=== PATIENT | male | born 1980 ===

== ENCOUNTER 2020-10-30 14:31 | Outpatient (REF) | payer MEDICARE, MEDICAID, SELFPAY | END 2020-10-30 14:32 | disposition home or self-care (01) | LOC: HO.LAB 14:31 | PROVIDERS: Visit Provider Internal Medicine | DX: Z20.828 Contact with and (suspected) exposure to other viral communicable diseases (principal) | CPT/HCPCS: C9803; U0003 ==

== ENCOUNTER 2021-12-30 10:12 | Outpatient (REF) | payer MEDICARE, MEDICAID, SELFPAY ==
--- NOTE | ~2021-12-30 | XR_ITS ---
EXAMINATION: XR LUMBOSACRAL SPINE CLINICAL INFORMATION: Dorsalgia COMPARISON: 05/27/2019 TECHNIQUE: Three views of the lumbosacral spine. FINDINGS: No acute fracture or subluxation. Vertebral body height and alignment maintained of the lumbar spine. Mild height loss at the T12 vertebral body is similar to previous CT. Small endplate osteophytes throughout the lumbar spine with mild facet arthropathy. The sacroiliac joints are symmetric. The visualized sacrum is intact. Normal bowel gas pattern. XR/XR lumbar spine 2-3V IMPRESSION: Mild degenerative changes throughout the lumbar spine.
== END 2021-12-30 10:13 | disposition home or self-care (01) ==
LOC: HO.XRAY 10:12
PROVIDERS: PCP Internal Medicine; Visit Provider Internal Medicine
DX: M54.9 Dorsalgia, unspecified (principal)
CPT/HCPCS: 72100

== ENCOUNTER 2022-01-13 10:45 | Outpatient (RCR) | payer MEDICARE, MEDICAID, SELFPAY ==
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
--- NOTE | 2022-01-31 09:49 | MHC.PT.DC ---
[facility] [place] Office [place] Office [address] [place] [address] [phone] F: [phone] F: [phone] F: [phone] F: [phone] Physical Therapy Discharge Report Diagnosis: LBP unspecified Date of Surgery: Date of Evaluation: 01/13/22 Date of Discharge: 01/31/22 Treatments to Date: 1 Cancellations to Date: No Shows to Date: Discharge Status: Patient Elected to Stop Discharge Summary: Pt called to report he was feeling better and wished to not continue with therapy after his initial evaluation. Electronically signed by: Amanuel Dickson PT. Please sign and return to therapist. Thank you for your referral.
== END 2022-01-31 09:48 | disposition home or self-care (01) ==
LOC: HO.PTCHIC 10:45
PROVIDERS: PCP Internal Medicine; Visit Provider Internal Medicine
DX: M54.50 Low back pain, unspecified (principal)
CPT/HCPCS: 97110; 97161

== ENCOUNTER 2023-05-11 14:29 | Inpatient (IN) | payer MEDICARE, MEDICAID, SELFPAY ==
--- NOTE | 2023-05-11 | ECG_ITS ---
Test Reason : psych meds/qt check Blood Pressure : / mmHG Vent. Rate : 089 BPM Atrial Rate : 089 BPM P-R Int : 134 ms QRS Dur : 094 ms QT Int : 378 ms P-R-T Axes : 028 -41 038 degrees QTc Int : 459 ms Normal sinus rhythm Left axis deviation Nonspecific ST and T wave abnormality Abnormal ECG When compared with ECG of 06-APR-2013 21:06, T wave amplitude has decreased in Anterior leads Referred By: Maldonado Griffin Electronically Signed By:DAVIS MCGEE MD
[2023-05-11 14:42] VITALS: BP 161/92; PULSE 100; RESP 18; TEMP 36.8; O2SAT 96; BMI 36.3
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
[2023-05-11 15:22] LABS: MANUAL DIFF FLAG NO
--- NOTE | 2023-05-11 15:24 | PHA.MEDREC ---
Pharmacy Consult ? Medication Reconciliation Pharmacy has completed the medication reconciliation. Spoke to patient to confirm meds. Patient reports their memory making it hard to remember their medications. Patient states that they take all confirmed medications, however patient hasn't filled their medications since February 2023 at the most recent. When asked about this gap of time, patient remains adamant that they take their medications every day and that all confirmed meds are what they currently take.
[2023-05-11 15:29] LABS: Amphetamine Screen Urine Not Detected (Not Detect); Barbiturates, Urine Not Detected (Not Detect); Benzodiazepines Screen Urine Not Detected (Not Detect); Cannabinoid Screen Urine POSITIVE (Not Detect); Cocaine Screen Urine Not Detected (Not Detect); Fentanyl, urine Not Detected (Not Detect); Opiate Screen Urine Not Detected (Not Detect); Phencyclidine Screen Urine Not Detected (Not Detect)
[2023-05-11 15:32] LABS: Basophils Absolute Auto 0.1 X10*3/uL (0.0-0.2); Basophils Percent Auto 0.5 % (0-2); Eosinophils Absolute Auto 0.3 X10*3/uL (0.0-0.4); Eosinophils Percent Auto 2.7 % (0-4); Hematocrit 46.6 % (42.0-52.0); Hemoglobin 16.2 g/dl (14.0-18.0); Imm Gran Abs Auto 0.02 X10*3/uL (0.00-0.03); Imm Gran Pct Auto 0.2 % (0.0-0.4); Lymphocytes Absolute Auto 3.3 X10*3/uL (1.2-4.9); Lymphocytes Percent Auto 35.7 % (20-40); Mean Corpuscular HGB Conc 34.8 g/dl (31.0-36.0); Mean Corpuscular Hemoglobin 29.6 pg (27.0-33.0); Mean Corpuscular Volume 85.2 fL (80.0-98.0); Mean Platelet Volume 10.5 fL (9.4-12.4); Monocytes Absolute Auto 0.9 X10*3/uL (0.1-1.2); Neutrophils Absolute Auto 4.7 x10*3/uL (2.0-8.3); Neutrophils Percent Auto 50.9 % (45-73); Platelet Count 241 X10*3/uL (160-400); Red Blood Count 5.47 X10*6/uL (4.60-5.80); Red Cell Distribution Width 12.2 % (11.0-16.0); White Blood Count 9.2 X10*3/uL (4.8-10.8)
[2023-05-11 15:35] LABS: IDNOW Serial# 08D9AD1C
[2023-05-11 15:36] LABS: Appearance Urine Clear; COVID-19 Test Negative (Negative); Color Urine Dark Yellow; Glucose Urine UA Negative (Negative); Leukocyte Esterase Urine Trace (Negative); Nitrite Urine Negative (Negative); Specific Gravity - Urine 1.025 (1.005-1.025); UMIC TRIGGER UACC YES; Urine Blood Negative (Negative); Urine Ketones 15 mg/dL (Negative); Urine Protein Trace mg/dL (Neg-Trace)
[2023-05-11 15:38] LABS: Bacteria Urine None Seen (None Seen); Squamous Epithelial Cell Urine 0-2 /HPF (0-2); WBC Urine 0-5 /HPF (0-5)
--- NOTE | 2023-05-11 15:39 | PC.NURSE ---
pt continues to speak in 3rd person, reporting paulie earlier . pt also making statements such as my ears were ringing because people were trying to pull my brain out .
[2023-05-11 15:40] LABS: Ethanol < 10 mg/dL
[2023-05-11 15:42] LABS: Alanine Aminotransferase 49 U/L (0-40); Albumin Level 4.6 g/dL (3.5-5.0); Alkaline Phosphatase 76 U/L (39-117); Anion Gap 18 (12-20); Aspartate Amino Transferase 40 U/L (5-37); Bilirubin Total 1.1 mg/dL (0.0-1.0); Blood Urea Nitrogen 8 mg/dL (9-16); Calcium 10.1 mg/dL (8.4-10.2); Carbon Dioxide 22 mmol/L (22-29); Chloride 102 mmol/L (96-108); Creatinine Clr Calc Pharmacy 139.9; Estimated Glomerular Filt Rate > 60; Glucose Random 120 mg/dL (60-115); Potassium 3.7 mmol/L (3.3-5.1); Sodium 138 mmol/L (135-145); Total Protein 7.4 g/dL (6.5-8.0)
[2023-05-11] MEDS: HaloperidoL 5 MG TABLET PO ×2 (16:18→19:27)
[2023-05-11] MEDS: clonazePAM 1 MG TABLET PO ×2 (16:18→19:27)
[2023-05-11] MEDS: Omeprazole 20 MG CAPSULE.DR PO (17:23)
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
[2023-05-11] MEDS: risperiDONE 2 MG TABLET PO (19:27)
[2023-05-11] MEDS: Nicotine 21 MG PATCH.TD24 TRANSDERMA (19:34)
[2023-05-11 21:35] VITALS: BP 177/94; PULSE 120; TEMP 36.7; O2SAT 99
--- NOTE | 2023-05-11 21:37 | PC.ADMIT ---
Addendum entered by Elizabeth Magana RN 05/11/23 21:53: pt has a tompkins order for risperdone. Original Note: pt is a 42 year old male who presented to [facility] [place] [place] ED with delusions, hallucinations, and responding to internal stimuli. pt was positive for THC. pt signed a CV. pt has a past medical history of obesity, substance abuse disorder, schizoaffective bipolar type, and numerous inpatient hospitalizations. during admission, pt allowed vitals signs and said immediately, I want to go to bed, I haven't slept in 9 months . pt began to be upset/agitated that he had a roommate but returned to the bed and went to sleep. Before this food writer left the room, pt said I don't like noise, please leave me alone to sleep and don't come back! pt refused to sign legals and to participate in admission. start treatment plan and promote safety.
[2023-05-12] MEDS: hydrOXYzine HCL 25 MG TABLET PO (08:50)
[2023-05-12] MEDS: Omeprazole 20 MG CAPSULE.DR PO (08:50)
[2023-05-12] MEDS: Buprenorphine/Naloxone 2/0.5mg FILM 0.5 FILM SUBLINGUAL ×2 (08:50→20:43)
[2023-05-12] MEDS: Multivitamin TABLET 1 TAB PO (08:50)
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
[2023-05-12] MEDS: clonazePAM 1 MG TABLET PO (14:24)
[2023-05-12 20:20] VITALS: BP 137/63; PULSE 63; TEMP 36
[2023-05-12] MEDS: risperiDONE 3 MG TABLET PO (20:41)
[2023-05-12] MEDS: OLANZapine 5 MG TABLET PO (20:41)
[2023-05-12] MEDS: lamoTRIgine 25 MG TABLET PO (20:41)
[2023-05-13 06:00] VITALS: BP 147/79; PULSE 87; RESP 18; TEMP 36.6; O2SAT 95
[2023-05-13] MEDS: Omeprazole 20 MG CAPSULE.DR PO (06:38)
[2023-05-13] MEDS: OLANZapine 5 MG TABLET PO ×2 (08:22→20:36)
[2023-05-13] MEDS: Buprenorphine/Naloxone 2/0.5mg FILM 0.5 FILM SUBLINGUAL ×2 (08:22→16:35)
[2023-05-13] MEDS: Multivitamin TABLET 1 TAB PO (08:22)
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
[2023-05-13] MEDS: clonazePAM 1 MG TABLET PO ×2 (15:53→20:35)
[2023-05-13 15:57] VITALS: RESP 16
[2023-05-13] MEDS: hydrOXYzine HCL 25 MG TABLET PO (16:04)
[2023-05-13 16:05] LABS: Estimated Average Glucose 103 mg/dL; Hemoglobin A1c % 5.2 %
[2023-05-13 16:06] LABS: Cholesterol 216 mg/dL; HDL Cholesterol 33 mg/dL; LDL Cholesterol Calculated 143 mg/dl; Triglycerides 201 mg/dL
[2023-05-13 16:40] LABS: Folate 18.5 ng/mL (> or = 4.0); Vitamin B12 1490 pg/mL (200-900)
--- NOTE | 2023-05-13 17:08 | PC.NURSE ---
pt signed 3 day on 05/12/23. it will be up the 05/17/23.
[2023-05-13] MEDS: risperiDONE 3 MG TABLET PO (20:35)
[2023-05-13] MEDS: lamoTRIgine 25 MG TABLET PO (20:36)
[2023-05-14] MEDS: Omeprazole 20 MG CAPSULE.DR PO (06:12)
[2023-05-14 08:30] VITALS: BP 119/62; PULSE 88; RESP 18; TEMP 36.1; O2SAT 93
[2023-05-14] MEDS: Buprenorphine/Naloxone 2/0.5mg FILM 0.5 FILM SUBLINGUAL ×2 (08:41→17:14)
[2023-05-14] MEDS: Multivitamin TABLET 1 TAB PO (08:42)
[2023-05-14] MEDS: OLANZapine 5 MG TABLET PO ×2 (08:42→19:34)
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
[2023-05-14] MEDS: clonazePAM 1 MG TABLET PO ×2 (14:35→19:35)
[2023-05-14 18:00] VITALS: RESP 16
[2023-05-14] MEDS: hydrOXYzine HCL 25 MG TABLET PO (19:08)
[2023-05-14] MEDS: lamoTRIgine 25 MG TABLET PO (19:35)
[2023-05-14] MEDS: risperiDONE 2 MG TABLET 4 MG PO (19:35)
[2023-05-15 08:25] VITALS: BP 104/54; PULSE 75; RESP 18; TEMP 36.7; O2SAT 96
[2023-05-15] MEDS: OLANZapine 5 MG TABLET PO ×2 (08:57→19:39)
[2023-05-15] MEDS: Multivitamin TABLET 1 TAB PO (08:57)
[2023-05-15] MEDS: Buprenorphine/Naloxone 2/0.5mg FILM 0.5 FILM SUBLINGUAL ×3 (08:57→19:49)
[2023-05-15] MEDS: Omeprazole 20 MG CAPSULE.DR PO (08:57)
[2023-05-15] MEDS: HaloperidoL 5 MG TABLET PO (11:10)
[2023-05-15] MEDS: clonazePAM 1 MG TABLET PO (15:12)
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
[2023-05-15] MEDS: risperiDONE 2 MG TABLET 4 MG PO (19:39)
[2023-05-15] MEDS: lamoTRIgine 25 MG TABLET PO (19:39)
[2023-05-16] MEDS: Omeprazole 20 MG CAPSULE.DR PO (05:44)
[2023-05-16 08:55] VITALS: BP 139/76; PULSE 80; RESP 16; TEMP 36.3; O2SAT 99
[2023-05-16] MEDS: OLANZapine 5 MG TABLET PO ×2 (08:56→17:42)
[2023-05-16] MEDS: Multivitamin TABLET 1 TAB PO (08:56)
[2023-05-16] MEDS: Buprenorphine/Naloxone 2/0.5mg FILM 0.5 FILM SUBLINGUAL ×2 (08:57→16:33)
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
[2023-05-16] MEDS: hydrOXYzine HCL 25 MG TABLET PO (14:40)
[2023-05-16] MEDS: HaloperidoL 5 MG TABLET PO (14:40)
[2023-05-16] MEDS: risperiDONE 2 MG TABLET 4 MG PO (17:42)
[2023-05-16] MEDS: clonazePAM 1 MG TABLET PO (17:42)
[2023-05-16] MEDS: lamoTRIgine 25 MG TABLET PO (17:42)
[2023-05-16] MEDS: OLANZapine 10 MG TABLET PO (19:25)
[2023-05-17] MEDS: Multivitamin TABLET 1 TAB PO (08:48)
[2023-05-17] MEDS: OLANZapine 10 MG TABLET PO ×2 (08:48→19:20)
[2023-05-17] MEDS: Omeprazole 20 MG CAPSULE.DR PO (08:49)
[2023-05-17 08:53] VITALS: BP 115/89; PULSE 107; RESP 16; TEMP 36.2; O2SAT 97
[2023-05-17] MEDS: Buprenorphine/Naloxone 2/0.5mg FILM 0.5 FILM SUBLINGUAL ×2 (08:53→17:00)
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
[2023-05-17] MEDS: HaloperidoL 5 MG TABLET PO (17:01)
[2023-05-17 18:00] VITALS: BP 113/76; PULSE 83; TEMP 35.9
[2023-05-17] MEDS: risperiDONE 2 MG TABLET 4 MG PO (19:20)
[2023-05-17] MEDS: lamoTRIgine 25 MG TABLET PO (19:20)
[2023-05-18] MEDS: Multivitamin TABLET 1 TAB PO (08:14)
[2023-05-18] MEDS: Omeprazole 20 MG CAPSULE.DR PO (08:15)
[2023-05-18] MEDS: Buprenorphine/Naloxone 2/0.5mg FILM 0.5 FILM SUBLINGUAL (08:15)
[2023-05-18] MEDS: OLANZapine 10 MG TABLET PO (08:15)
[2023-05-18 08:17] VITALS: BP 121/85; PULSE 88; RESP 20; O2SAT 97
[2023-05-18 09:05] VITALS: BMI 41.5
--- NOTE | 2023-05-18 12:02 | P.DS_ITS ---
DS: Providers Provider Date of Service: 05/18/23 Date of admission: 05/11/23 20:09 Date of discharge: 05/18/23 Primary care physician: Unknown Physician Admitting clinician: Regi Hubbard Attending physician on admission: Torres Rausch Attending physician on discharge: Torres Rausch Discharging clinician: Regi Hubbard DS: Diagnosis Discharge Diagnosis (1) Schizoaffective disorder, bipolar type: Status: Acute (2) Cannabis use disorder: Status: Acute DS: Medications Discharge Medications Home Medications: Previous Rx's Medication Instructions Recorded clonazepam 1 mg tablet 1 mg PO BEDTIME PRN Anxiety #30 05/17/23 tabs hydroxyzine HCl 25 mg tablet 25 mg PO Q6H PRN Anxiety #60 tabs 05/17/23 lamotrigine 25 mg tablet 25 mg PO BEDTIME #30 tabs 05/17/23 lidocaine 4 % topical patch 1 patch transdermal DAILY #30 ea 05/17/23 (Lidocaine Pain Relief) multivitamin with folic acid 400 1 tab PO DAILY #30 tabs 05/17/23 mcg tablet (Tab-A-Elayne) olanzapine 10 mg tablet 10 mg PO BID #60 tabs 05/17/23 olanzapine 5 mg tablet 5 mg PO Q4H PRN agitation, lolly, 05/17/23 psychosis #15 tabs omeprazole 20 mg capsule,delayed 20 mg PO DAILY@0630 #30 caps 05/17/23 release risperidone 2 mg tablet 4 mg PO BEDTIME #60 tabs 05/17/23 trazodone 50 mg tablet 50 mg PO BEDTIME MRX1 PRN Insomnia 05/17/23 #45 tabs buprenorphine 2 mg-naloxone 0.5 mg 0.5 film sublingual BID@0900,1700 05/18/23 sublingual film #7 ea Mental Status Exam Mental Status Exam Patient Appearance: Appropriate Patient Orientation: Person, Place, Time and Situation Level of Consciousness: Alert Patient Behavior: Appropriate and Talkative Mood Description: Constricted Affect Description: Constricted Patient Cognition Impaired: No Ability to Follow Directions: Good Speech Pattern: Spontaneous Speech Memory Description: Intact Hallucinations: None Delusions: Not Present Thought Process: Goal Oriented Thought Content: positive for Perseveration, positive for Suicidal Ideation (denies) and positive for Homicidal Ideation (denies) Depressive Symptoms: Thoughts of /Suicide (denies) Judgement: Good Data Data Completed and Pending Completed studies during hospitalization [Text1]: 05/11/23 05/11/23 05/11/23 14:54 14:54 14:54 WBC RBC Hgb Hct MCV MCH MCHC RDW Plt Count MPV Immature Gran % (Auto) Neut % (Auto) Lymph % (Auto) [place] % (Auto) Eos % (Auto) Baso % (Auto) Lymph # (Auto) [place] # (Auto) Eos # (Auto) Baso # (Auto) Abs Immat Gran (auto) Absolute Neuts (auto) Absolute Nucleated RBC Nucleated RBC % (auto) Sodium Potassium Chloride Carbon Dioxide Anion Gap BUN Creatinine Estim Creat Clear Calc Estimated GFR Random Glucose Estimat Average Glucose Hemoglobin A1c % Calcium Total Bilirubin AST ALT Alkaline Phosphatase Total Protein Albumin Triglycerides Cholesterol LDL Cholesterol, Calc HDL Cholesterol Vitamin B12 Folate Urine Color Dark Yellow Urine Appearance Clear Urine pH 6.0 Ur Specific [place] 1.025 Urine Protein Trace Urine Glucose (UA) Negative Urine Ketones 15 Urine Blood Negative Urine Nitrite Negative Ur Leukocyte Esterase Trace H Urine RBC 3-5 H Urine WBC 0-5 Ur Squamous Epith Cells 0-2 Urine Bacteria None Seen Hyaline Casts 3-5 Urine Opiates Screen Not Detected Urine Fentanyl Screen Not Detected Ur Barbiturates Screen Not Detected Ur Phencyclidine Scrn Not Detected Ur Amphetamines Screen Not Detected U Benzodiazepines Scrn Not Detected Urine Cocaine Screen Not Detected U Marijuana (THC) Screen POSITIVE H Ethyl Alcohol COVID-19 (JESSICA) Negative COVID-19 Clin Com See Note 05/11/23 05/11/23 05/11/23 15:18 15:18 15:18 WBC 9.2 RBC 5.47 Hgb 16.2 Hct 46.6 MCV 85.2 MCH 29.6 MCHC 34.8 RDW 12.2 Plt Count 241 MPV 10.5 Immature Gran % (Auto) 0.2 Neut % (Auto) 50.9 Lymph % (Auto) 35.7 [place] % (Auto) 10.0 Eos % (Auto) 2.7 Baso % (Auto) 0.5 Lymph # (Auto) 3.3 [place] # (Auto) 0.9 Eos # (Auto) 0.3 Baso # (Auto) 0.1 Abs Immat Gran (auto) 0.02 Absolute Neuts (auto) 4.7 Absolute Nucleated RBC 0.000 Nucleated RBC % (auto) 0.0 Sodium 138 Potassium 3.7 Chloride 102 Carbon Dioxide 22 Anion Gap 18 BUN 8 L Creatinine 0.88 Estim Creat Clear Calc 139.9 Estimated GFR > 60 Random Glucose 120 H Estimat Average Glucose Hemoglobin A1c % Calcium 10.1 Total Bilirubin 1.1 H AST 40 H ALT 49 H Alkaline Phosphatase 76 Total Protein 7.4 Albumin 4.6 Triglycerides Cholesterol LDL Cholesterol, Calc HDL Cholesterol Vitamin B12 Folate Urine Color Urine Appearance Urine pH Ur Specific [place] Urine Protein Urine Glucose (UA) Urine Ketones Urine Blood Urine Nitrite Ur Leukocyte Esterase Urine RBC Urine WBC Ur Squamous Epith Cells Urine Bacteria Hyaline Casts Urine Opiates Screen Urine Fentanyl Screen Ur Barbiturates Screen Ur Phencyclidine Scrn Ur Amphetamines Screen U Benzodiazepines Scrn Urine Cocaine Screen U Marijuana (THC) Screen Ethyl Alcohol < 10 COVID-19 (JESSICA) COVID-19 [email or web address] 05/13/23 05/13/23 05/13/23 15:06 15:06 15:06 WBC RBC Hgb Hct MCV MCH MCHC RDW Plt Count MPV Immature Gran % (Auto) Neut % (Auto) Lymph % (Auto) [place] % (Auto) Eos % (Auto) Baso % (Auto) Lymph # (Auto) [place] # (Auto) Eos # (Auto) Baso # (Auto) Abs Immat Gran (auto) Absolute Neuts (auto) Absolute Nucleated RBC Nucleated RBC % (auto) Sodium Potassium Chloride Carbon Dioxide Anion Gap BUN Creatinine Estim Creat Clear Calc Estimated GFR Random Glucose Estimat Average Glucose 103 Hemoglobin A1c % 5.2 Calcium Total Bilirubin AST ALT Alkaline Phosphatase Total Protein Albumin Triglycerides 201 Cholesterol 216 LDL Cholesterol, Calc 143 HDL Cholesterol 33 Vitamin B12 1490 H Folate 18.5 Urine Color Urine Appearance Urine pH Ur Specific [place] Urine Protein Urine Glucose (UA) Urine Ketones Urine Blood Urine Nitrite Ur Leukocyte Esterase Urine RBC Urine WBC Ur Squamous Epith Cells Urine Bacteria Hyaline Casts Urine Opiates Screen Urine Fentanyl Screen Ur Barbiturates Screen Ur Phencyclidine Scrn Ur Amphetamines Screen U Benzodiazepines Scrn Urine Cocaine Screen U Marijuana (THC) Screen Ethyl Alcohol COVID-19 (JESSICA) COVID-19 [employer] Com DS: Summary Hospital Course Hospital Course: Admission to adult psychiatry for exacerbation of schizoaffective disorder, bipolar type, cannabis use disorder, opiate use disorder-currently on Suboxone. Pt currently has an active community Regan's guardianship which will on 07/07/23. He has ACCS supports for independent living in [place]. Pt signed a three day notice on admission. Medications were reviewed and adjusted within guardianship parameters and pt recompensated, identifying sleep issues and increased sx prior to admission. Pt will return to out patient providers. He would not consider the offer to remain in patient for an extended brief time to continue stabilization, however is aware he may return if needed. Time spent discussing smoking cessation with patient: 3 to 10 minutes Status at Discharge Functional status at discharge: independent ambulation Overall status at discharge: patient is progressing back to baseline Time Spent with Patient Time attestation: Total time managing care of this patient today ____ minutes. Time spent: Greater than 30 minutes Discharge Plan Discharge Anticipated Discharge Date/Time: 05/18/23 12:02 Patient Disposition: Home, Self-Care Discharge Diagnosis: Schizoaffective Disorder, Bipolar Type Cannabis Use Disorder Opiate Use Disorder-currently on Suboxone Referrals: [facility] Medication Management Dr. Valdovinos [Other] - 06/07/23 11:00 am (Telehealth) [facility]S Team Bárbara Chappell [Other] - 3-5 Days (Follow up with your support team. ) Jonathan Castro MD [Physician] - 05/24/23 2:30 pm (IN OFFICE) Discharge Medications: New lidocaine [Lidocaine Pain Relief] 4 % Adhesive Patch,Medicated 1 patch transdermal DAILY Qty: 30 0RF Protocol: Apply to: Apply to: back trazodone 50 mg Tablet 50 mg PO BEDTIME MRX1 PRN (Reason: Insomnia) Qty: 45 0RF olanzapine 5 mg Tablet 5 mg PO Q4H PRN (Reason: agitation, lolly, psychosis) Qty: 15 0RF olanzapine 10 mg Tablet 10 mg PO BID Qty: 60 0RF risperidone 2 mg Tablet 4 mg PO BEDTIME Qty: 60 0RF hydroxyzine HCl 25 mg Tablet 25 mg PO Q6H PRN (Reason: Anxiety) Qty: 60 0RF Continued clonazepam 1 mg tablet 1 mg PO BEDTIME PRN (Reason: Anxiety) Qty: 30 0RF lamotrigine 25 mg tablet 25 mg PO BEDTIME Qty: 30 0RF multivitamin with folic acid [Tab-A-Elayne] 400 mcg tablet 1 tab PO DAILY Qty: 30 0RF buprenorphine-naloxone 2-0.5 mg film 0.5 film sublingual BID@0900,1700 Qty: 7 0RF Changed omeprazole 20 mg capsule,delayed release(DR/EC) 20 mg PO DAILY@0630 Qty: 30 0RF Discontinued risperidone 2 mg tablet 2 mg PO BEDTIME Discharge Orders: Discharge Order (Routine); Ordered 05/17/23 Ordered By: Regi Hubbard Diet: Advance to usual diet Activity on Discharge: As tolerated Stand Alone Forms: Patient Portal Discharge page, Community Support Print Language: Burmese Care Plan Goals: Mood and Behavioral Stability Health Concerns: Mood and Behavioral Stability Plan of Treatment: Follow up with scheduled appointments Take medications as directed Assessment: Pt is leaving on a three day notice of intent Pt interviewed prior to discharge and found to be fully oriented and without SI/HI. Pt has insight and demonstrates appropriate judgment in terms of wanting to pursue treatment. Pt is not in imminent risk of harm to self or others and has a safety plan that includes presenting to the closest ER or calling 911 if feeling unsafe. Pt has been observed closely by nursing and unit staff throughout admission. Pt has not engaged in any behaviors that suggest dangerousness to self or others and has demonstrated appropriate behaviors and impulse control. Discharge Date/Time: 05/18/23 11:35
== END 2023-05-18 11:35 | disposition home or self-care (01) | DRG 885 ==
LOC: HO.ED 18:17 → HO.PM5 20:19
PROVIDERS: Emergency Medicine; Admitting Provider Psychiatry & Neurology Psychiatry; Emergency Provider Emergency Medicine Emergency Medical Services; Visit Provider Clinical Nurse Specialist Psychiatric/Mental Health, Adult
DX: F25.0 Schizoaffective disorder, bipolar type (principal); Z68.41 Body mass index [BMI] 40.0-44.9, adult; E66.01 Morbid (severe) obesity due to excess calories; F12.10 Cannabis abuse, uncomplicated; Z20.822 Contact with and (suspected) exposure to COVID-19; Z79.899 Other long term (current) drug therapy
CPT/HCPCS: 36415; 80053; 80061; 80307; 81001; 82607; 82746; 83036; 85025; 87635; 93005; 99285

== ENCOUNTER → 2023-05-11 20:09 | Outpatient (BNV) | payer MEDICARE, MEDICAID, SELFPAY | PROVIDERS: Admitting Provider Psychiatry & Neurology Psychiatry; Emergency Provider Emergency Medicine Emergency Medical Services; Visit Provider Psychiatry & Neurology Psychiatry | DX: F25.0 Schizoaffective disorder, bipolar type (principal); F12.90 Cannabis use, unspecified, uncomplicated | CPT/HCPCS: 90792; 99231; 99232; 99239 ==

== ENCOUNTER 2024-06-04 11:34 | Outpatient (AMB) | payer MEDICARE, MEDICAID, SELFPAY ==
[2024-06-04 11:35] VITALS: BP 136/88; PULSE 88; O2SAT 98; BMI 43.0
--- NOTE | 2024-06-04 11:35 | A.OFFPC_ITS ---
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 Allergies lorazepam [From [facility]] Allergy (Unknown, Verified 06/04/24 11:36) HALLUCINATION Medication List - Last Reconciled 06/04/24 by Jonathan Castro MD buprenorphine-naloxone 2-0.5 mg 0.5 film sublingual BID@0900,1700 lamotrigine 25 mg PO BEDTIME multivitamin with folic acid 400 mcg (Tab-A-Elayne) 1 tab PO DAILY omeprazole 20 mg PO DAILY@0630 risperidone 4 mg (2 x 2 mg) PO BEDTIME Tobacco use date assessed: 06/04/24 Dental Screening Dental Screen Date: 06/04/24 Did you have a dental visit in the last 12 months?: Yes Did you have a dental problem in the last 6 months where you did not have access to dental care?: No Was dental information given to patient?: Patient has dentist HPI Rash HPI Details rash on left palm PFSH Medical History (Updated 05/26/23 @ 00:17 by Skinny Hassan) Cannabis use disorder Schizoaffective disorder, bipolar type Morbid obesity Substance abuse Surgical History History of tonsillectomy and adenoidectomy Family History Father Medical history unknown Mother Kidney failure Social History Household Members: Other Housing: Apartment Do you presently have visiting nurse or other home services: No Alcohol intake: former Patient Tobacco Use Status: Never used Tobacco Tobacco use type: Cigarette Cigarette Packs Per Day: 1 e-Cigarette/Vaping Use: Never Used Second Hand Smoke Exposure: No Substance Use Type: Marijuana service: No Current occupational status: disabled Current occupational exposures/hazards: No Sexual orientation: Straight/Heterosexual Cognitive needs: No Hearing needs: No Vision needs: No Questionnaire PHQ-9 Over the last 2 weeks, how often have you been bothered by any of the following problems? 1. Little interest or pleasure in doing things: not at all 2. Feeling down, depressed, or hopeless: not at all 3. Trouble falling or staying asleep, or sleeping too much: not at all 4. Feeling tired or having little energy: not at all 5. Poor appetite or overeating: not at all 6. Feeling bad about yourself - or that you are a failure or have let yourself or your family down: not at all 7. Trouble concentrating on things, such as reading the newspaper or watching television: not at all 8. Moving or speaking so slowly that other people could have noticed. Or the opposite - being so fidgety or restless that you have been moving around a lot more than usual: not at all 9. Thoughts that you would be better off or of hurting yourself in some way: not at all Total score: 0 Depression Screening Interpretation: Negative Depression Screening Done: Yes 53681 - PHQ-9 Billing: Yes Source: Developed by Drs. Edward Sawyer, Rain Trejo, Judson Sutton and colleagues, with an educational danielle from [employer]. Thrive Questionnaire Date Thrive assessed: 06/04/24 I am a: Patient What is your living situation today?: I have a steady place to live Within the past 12 months, did the food you bought not last and you didn't have the money to get more?: Never true Within the past 12 months, did you worry whether your food would run out before you got money to buy more?: Never true Do you have trouble paying for medicines?: No Do you have trouble getting transportation to medical appointments?: No Do you have trouble paying your heating and electricity bill?: No Do you have trouble taking care of your child, family member or friend?: No Do you have trouble with day-to-day activities such as bathing, preparing meals, shopping, managing finances, etc.?: No Are you currently unemployed and looking for a job?: No Are you interested in more education?: No Please select the resources that you would like help with: None THRIVE Score: 0 AUDIT C Alcohol Use Questionnaire (AUDIT-C) 1. How often do you have a drink containing alcohol?: Never Total Score: 0 Score Reviewed/Action Taken: Yes OMAR-7 AMB Questionnaire OMAR-7 Date OMAR - 7 assessed: 06/04/24 Feeling nervous, anxious, or on edge: 0 = Not at all Not being able to stop or control worryin = Not at all Worrying too much about different things: 0 = Not at all Trouble relaxin = Not at all Being so restless that it is hard to sit still: 0 = Not at all Becoming easily annoyed or irritable: 0 = Not at all Feeling afraid as if something awful might happen: 0 = Not at all Total OMAR-7 score (0-4 normal; 5-9 mild; 10-14 moderate; 15-21 severe): 0 Source: Developed by Drs. Edward Sawyer, Rain Trejo, Judson Sutton and colleagues, with an educational danielle from [employer]. Review of Systems Const Denies chills, Denies headache(s) and Denies weight loss ENT Denies headache(s) Card Denies chest pain, Denies syncope, Denies irregular heart rhythm and Denies dyspnea Resp Denies chest congestion, Denies cough and Denies dyspnea GI Denies abdominal pain, Denies change in stool character, Denies nausea and Denies vomiting Musc Denies deformity and Denies joint swelling Neuro Denies syncope and Denies headache(s) Physical exam (Primary Care) Vital Signs: Last Vital Signs Pulse 88 06/04/24 11:35 BP 136/88 06/04/24 11:35 Pulse Ox 98 06/04/24 11:35 Oxygen Delivery Method Room Air 06/04/24 11:35 BMI result Body Mass Index 43.0 Tobacco/Smoking Status: Tobacco use Status Tobacco use date assessed 06/04/24 06/04/24 11:37 Patient Tobacco Use Status Never used Tobacco 06/04/24 11:37 Tobacco use type Cigarette 06/04/24 11:37 e-Cigarette/Vaping Use Never Used 06/04/24 11:37 PHQ-9: PHQ-9 Score PHQ-9: Total score 0 06/04/24 11:37 Depression Screening Interpretation: Negative Thrive Assessment: Date of Thrive Assessment Date Thrive assessed 06/04/24 06/04/24 11:37 Const General: cooperative, comfortable, no acute distress and alert Neck Neck: Yes no lymphadenopathy Thyroid: Thyroid normal Resp Effort & Inspection: normal respiratory effort Auscultation: clear to auscultation bilaterally Percussion: percussion normal Cardio Jugular venous distension: no JVD Palpation: normal PMI Rate: regular rate Rhythm: regular rhythm Heart sounds: S1 normal heart sound present and S2 normal heart sound present GI Inspection: Yes normal to inspection Palpation (GI): No hepatosplenomegaly present Skin Other: contact dermatitis left palm Extrem General: Yes no clubbing, cyanosis or edema Assessment and Plan Assessment & Plan (1) Contact dermatitis: Code(s): L25.9 - Unspecified contact dermatitis, unspecified cause Plan: rx sent Medications: New triamcinolone acetonide 0.5% 1 appl topical TID 15 grams 3RF Coding Level of Care Code Est Pt Level 3 (29188) Diagnoses Contact dermatitis L25.9
== END 2024-06-04 13:13 | disposition home or self-care (01) ==
PROVIDERS: Visit Provider Internal Medicine
DX: L25.9 Unspecified contact dermatitis, unspecified cause (principal)
CPT/HCPCS: 99213

== ENCOUNTER → 2024-09-04 12:59 | Outpatient (BNVA) | payer MEDICARE, MEDICAID, SELFPAY | PROVIDERS: PCP Internal Medicine; Visit Provider Internal Medicine ==

== ENCOUNTER 2025-07-22 10:53 | Outpatient (AMB) | payer MEDICARE, MEDICAID, SELFPAY ==
[2025-07-22 10:54] VITALS: BP 150/90; PULSE 93; RESP 18; TEMP 36.3; O2SAT 97; BMI 45.2
--- NOTE | 2025-07-22 10:54 | A.OFFPC_ITS ---
Vital Signs 07/22/25 10:54 07/22/25 11:00 Height 5 ft 11 in Weight 324 lb 4 oz BMI 45.2 BP 150/90 H 142/84 H Blood Pressure Location Lt brachial Lt brachial Position Sitting Sitting Respiration 18 Pulse 93 Pulse Source Pulse Oximeter Temp 97.3 F Temp Source Temporal Artery Scan Pulse Oximetry (%) 97 Oxygen Delivery Method Room Air Intake Visit Reasons: PATRICK from [employer] Curator Required: No Accompanied by: Self / Same As Patient Allergies lorazepam (From [facility]) Allergy (Unknown, Verified 07/22/25 11:14) HALLUCINATION Medication List - Last Reconciled 07/22/25 by GERRI Lynne benztropine 0.5 mg PO DAILY clonazepam (Klonopin) 0.5 mg PO BEDTIME clotrimazole-betamethasone 1-0.05 % 1 appl topical BID 2 weeks lamotrigine 25 mg PO BEDTIME lamotrigine (Lamictal) 25 mg PO DAILY multivitamin with folic acid 400 mcg (Tab-A-Elayne) 1 tab PO DAILY omeprazole 20 mg PO DAILY@0630 risperidone 4 mg (2 x 2 mg) PO BEDTIME risperidone (Risperdal) 4 mg PO DAILY Tobacco use date assessed: 07/22/25 Dental Screening Dental Screen Date: 07/22/25 Did you have a dental visit in the last 12 months?: Yes Did you have a dental problem in the last 6 months where you did not have access to dental care?: No Was dental information given to patient?: Patient has dentist HPI PATRICK from [employer] HPI Details The patient is a 44-year-old male presenting to transition care from Dr. Castro, who retired 5 months ago. He reports a chronic cough. The cough began approximately a month ago and has persisted since then. The patient reports that the cough is exacerbated by his smoking habit, which he acknowledges as a contributing factor. The patient also reports a history of lower back pain, which he attributes to previous physical labor and an incident involving moving a couch two years ago. He describes the pain as persistent, particularly when engaging in physical activities. The patient has a history of allergic rhinitis, which he associates with seasonal changes and exposure to pollen. He experiences symptoms such as nasal congestion and sneezing, which he manages with cpdv-dnx-oxbrqgd medications. The patient has a history of Suboxone use for opioid dependence, which he discontinued two years ago. He reports being clean since then and no longer requires the medication. The patient has been treated with steroids during hospital admissions for pneumonia and is advised to seek medical attention if symptoms worsen. Patient has a [employer]LECT[employer] that helps him daily for an hour. He also reports a nurse coming in once a week to sort out his medications and a nurse coming in once a month to check his blood pressure. Reports that this program is run through [facility]. Patient reports that his left hip hurts every once in a while that usually starts from lower back. He declines physical therapy because he went once and was unable to walk for 2 days. The patient reports that he goes to the gym on his own. Patient also reports history of carpal tunnel that has been doing good since receiving shots in the wrist. [facility] Medical History Cannabis use disorder Schizoaffective disorder, bipolar type Morbid obesity Substance abuse Surgical History History of tonsillectomy and adenoidectomy Family History Father Medical history unknown Mother Kidney failure Social History Household Members: Other Housing: Apartment Do you presently have visiting nurse or other home services: No Alcohol intake: former Patient Tobacco Use Status: Never used Tobacco Tobacco use type: Cigarette Cigarette Packs Per Day: 1 e-Cigarette/Vaping Use: Never Used Second Hand Smoke Exposure: No Substance Use Type: Marijuana service: No Current occupational status: disabled Current occupational exposures/hazards: No Sexual orientation: Straight/Heterosexual Cognitive needs: No Hearing needs: No Vision needs: No Questionnaire PHQ-9 Over the last 2 weeks, how often have you been bothered by any of the following problems? 1. Little interest or pleasure in doing things: not at all 2. Feeling down, depressed, or hopeless: not at all 3. Trouble falling or staying asleep, or sleeping too much: not at all 4. Feeling tired or having little energy: not at all 5. Poor appetite or overeating: not at all 6. Feeling bad about yourself - or that you are a failure or have let yourself or your family down: not at all 7. Trouble concentrating on things, such as reading the newspaper or watching television: not at all 8. Moving or speaking so slowly that other people could have noticed. Or the opposite - being so fidgety or restless that you have been moving around a lot more than usual: not at all 9. Thoughts that you would be better off or of hurting yourself in some way: not at all Total score: 0 Depression Screening Interpretation: Negative Depression Screening Done: Yes 75879 - PHQ-9 Billing: Yes Source: Developed by Drs. Edward Sawyer, Rain Trejo, Judson Sutton and colleagues, with an educational danielle from [employer]. Thrive Questionnaire Date Thrive assessed: 07/22/25 I am a: Patient What is your living situation today?: I have a steady place to live Within the past 12 months, did the food you bought not last and you didn't have the money to get more?: Never true Within the past 12 months, did you worry whether your food would run out before you got money to buy more?: Never true Do you have trouble paying for medicines?: No Do you have trouble getting transportation to medical appointments?: No Do you have trouble paying your heating and electricity bill?: No Do you have trouble taking care of your child, family member or friend?: No Do you have trouble with day-to-day activities such as bathing, preparing meals, shopping, managing finances, etc.?: No Are you currently unemployed and looking for a job?: No Are you interested in more education?: No Please select the resources that you would like help with: None THRIVE Score: 0 AUDIT C Alcohol Use Questionnaire (AUDIT-C) 1. How often do you have a drink containing alcohol?: Never Total Score: 0 Score Reviewed/Action Taken: Yes OMAR-7 AMB Questionnaire OMAR-7 Date OMAR - 7 assessed: 07/22/25 Feeling nervous, anxious, or on edge: 0 = Not at all Not being able to stop or control worryin = Not at all Worrying too much about different things: 0 = Not at all Trouble relaxin = Not at all Being so restless that it is hard to sit still: 0 = Not at all Becoming easily annoyed or irritable: 0 = Not at all Feeling afraid as if something awful might happen: 0 = Not at all Total OMAR-7 score (0-4 normal; 5-9 mild; 10-14 moderate; 15-21 severe): 0 Source: Developed by Drs. Edward Sawyer, Rain Trejo, Judson Sutton and colleagues, with an educational danielle from [employer]. OMAR-7 Assessment Billing OMAR-7 Assessment Tool: OMAR-7 Assessment 75213 Review of Systems Const Denies headache(s) Eyes Denies loss of vision ENT Denies vertigo, Denies dizziness, Denies headache(s), Reports nasal congestion and Denies sore throat Card Denies chest pain, Denies leg edema and Denies lightheadedness Resp Reports cough, Denies hemoptysis and Denies wheezing GI Denies abdominal pain, Denies melena, Denies constipation, Denies diarrhea and Denies vomiting Denies dysuria, Denies urinary frequency and Denies urinary urgency Musc Reports back pain (lower back), Denies arthralgias, Denies joint swelling, Denies numbness, Reports radiating pain into limb (Left hip at times) and Denies tingling Neuro Denies Abnormal speech present, Denies behavioral changes, Denies vertigo, Denies dizziness, Denies headache(s), Denies loss of vision, Denies memory loss, Denies numbness and Denies tingling Psych Denies anxiety, Denies behavioral changes, Denies depression, Denies memory loss and Denies panic attacks Thong/Lymph Denies easy bleeding and Denies easy bruising Aller/Immun Denies wheezing Physical exam (Primary Care) Vital Signs: Last Vital Signs Temp 97.3 F 07/22/25 10:54 Pulse 93 07/22/25 10:54 Resp 18 07/22/25 10:54 BP 142/84 H 07/22/25 11:00 Pulse Ox 97 07/22/25 10:54 Oxygen Delivery Method Room Air 07/22/25 10:54 BMI result Body Mass Index 45.2 Tobacco/Smoking Status: Tobacco use Status Tobacco use date assessed 07/22/25 07/22/25 11:06 Patient Tobacco Use Status Never used Tobacco 07/22/25 11:06 Tobacco use type Cigarette 07/22/25 11:06 e-Cigarette/Vaping Use Never Used 07/22/25 11:06 PHQ-9: PHQ-9 Score PHQ-9: Total score 0 07/22/25 12:55 Depression Screening Interpretation: Negative Thrive Assessment: Date of Thrive Assessment Date Thrive assessed 07/22/25 07/22/25 11:06 Const General: healthy appearing, no acute distress, alert and awake Nutritional Appearance: well nourished Orientation/consciousness: oriented to person, oriented to place and oriented to time HENMT Ears: TM's normal bilaterally General nose exam: Abnormal mucous membranes and turbinates present boggy bilateral and erythematous bilateral and Nasal discharge present purulent on the right Eyes Conjunctivae: conjunctivae normal Sclerae: sclerae normal Pupils: Equal, round and reactive pupils present Neck Neck: Yes no lymphadenopathy and Yes no JVD Thyroid: Thyroid normal Carotids: no bruits Resp Effort & Inspection: normal respiratory effort and not tachypneic Auscultation: no crackles, no rales, no rhonchi and no wheezes Cardio Rate: regular rate Rhythm: regular rhythm Heart sounds: no murmurs and normal S1 and S2 GI Palpation (GI): Soft to palpation, nontender, no hepatomegaly and no splenomegaly Auscultation: normal bowel sounds Back/Spine/Pelvis Thoracic/Lumbar Spine: No lumbar spinal tenderness Skin General skin exam: no rashes or lesions noted and dry skin Neuro General: oriented to person, oriented to place and oriented to time Cranial nerves: Yes Equal, round and reactive pupils present Speech: No Abnormal speech present Gait exam (Neuro): Normal gait present Motor exam (neuro): no tremor noted Extrem Right upper extremity: full ROM Left upper extremity: full ROM Right lower extremity: full ROM; no edema Left lower extremity: full ROM and hip/thigh Details: no tenderness and no swelling; no edema Psych Mental Status: mental status grossly normal Speech and movement: Normal speech and movement present Affect: normal affect Attitude: cooperative Thought process: Normal thought process present Coding Level of Care Code Est Pt Level 4 (99401) Diagnoses Schizoaffective disorder, bipolar type F25.0 Cannabis use disorder F12.90 Morbid obesity E66.01 Back pain at L4-L5 level M54.50 Nicotine dependence with current use F17.200 Rhinosinusitis J32.9 Additional Codes PHQ-9 - 92895 - PHQ-9 Billing: Yes ([id number]) OMAR-7 Assessment Billing - OMAR-7 Assessment Tool: OMAR-7 Assessment 06242 ([id number]) Time Spent (min) 39 Assessment & Plan Assessment & Plan (1) Schizoaffective disorder, bipolar type: Code(s): F25.0 - Schizoaffective disorder, bipolar type Category: Medical Plan: Continue benztropine 0.5 mg daily, lamotrigine 25 mg daily, risperidone 4 mg daily Denies SI/HI Follow up with psychiatrist as scheduled (2) Cannabis use disorder: Code(s): F12.90 - Cannabis use, unspecified, uncomplicated Category: Medical Plan: Encouraged cessation (3) Morbid obesity: Code(s): E66.01 - Morbid (severe) obesity due to excess calories Category: Medical Plan: Encouraged to exercise for at least 30 minutes a day/5 days a week Healthy eating discussed. Encouraged to eat fruits/vegetables, protein- fish/baked chicken, and to avoid salty/fried foods, sweets, caffeine and carbohydrates. Encouraged to increase water intake 6-8 glasses a day (4) Back pain at L4-L5 level: Code(s): M54.50 - Low back pain, unspecified Category: Medical Plan: Avoid bed rest (including sitting in bed) and to simply limit painful activities; improvement usually occurs within a few weeks May use cool packs; may alternate cold and hot packs Exercises a holguin (e.g., walking, swimming, cycling) as soon as possible, starting with 5-10 min and walk-in up to 20-30 minute q.day Abdominal core and back strengthening exercises may help to prevent future problems (5) Nicotine dependence with current use: Code(s): F17.200 - Nicotine dependence, unspecified, uncomplicated Category: Medical Plan: Encouraged cessation (6) Rhinosinusitis: Code(s): J32.9 - Chronic sinusitis, unspecified Category: Medical Plan: Ordered Augmentin b.i.d. x7 days Limit exposure to allergens Air purifiers and dust filters Air conditioner in house, especially where sleeping Plan Plan Patient was informed and verbally consented to the use of an ambient scribe for clinic note documentation during this visit. 1. Chronic Cough The patient will be prescribed antibiotics to address the suspected infection contributing to the chronic cough. Follow-up is recommended to assess the effectiveness of the treatment and to consider further evaluation if symptoms persist. 2. Tobacco Use Disorder The patient is advised to reduce smoking as it exacerbates his cough and contr ibutes to overall health risks. 3. Lower Back Pain The patient is encouraged to engage in gentle physical activity and consider physical therapy to manage lower back pain. 4. Allergic Rhinitis The patient is advised to continue using cryg-cgo-jycnzdv medications to manage symptoms of allergic rhinitis. Orders: Orders Vitamin D 25-OH Total 07/22/25 E66.01 - Morbid (severe) obesity due to excess calories, E66.9 - Obesity, unspecified, F12.90 - Cannabis use, unspecified, uncomplicated, F17.200 - Nicotine dependence, unspecified, uncomplicated, F25.0 - Schizoaffective disorder, bipolar type, M54.50 - Low back pain, unspecified UA CC w/rflx Micro + Cult 07/22/25 E66.01 - Morbid (severe) obesity due to excess calories, E66.9 - Obesity, unspecified, F12.90 - Cannabis use, unspecified, uncomplicated, F17.200 - Nicotine dependence, unspecified, uncomplicated, F25.0 - Schizoaffective disorder, bipolar type, M54.50 - Low back pain, unspecified Complete Blood Count Auto Diff 07/22/25 E66.01 - Morbid (severe) obesity due to excess calories, E66.9 - Obesity, unspecified, F12.90 - Cannabis use, unspecified, uncomplicated, F17.200 - Nicotine dependence, unspecified, uncomplicated, F25.0 - Schizoaffective disorder, bipolar type, M54.50 - Low back pain, unspecified Comprehensive [place]. Panel Fast 07/22/25 E66.01 - Morbid (severe) obesity due to excess calories, E66.9 - Obesity, unspecified, F12.90 - Cannabis use, unspecified, uncomplicated, F17.200 - Nicotine dependence, unspecified, uncomplicated, F25.0 - Schizoaffective disorder, bipolar type, M54.50 - Low back pain, unspecified TSH reflex Free T4 07/22/25 E66.01 - Morbid (severe) obesity due to excess calories, E66.9 - Obesity, unspecified, F12.90 - Cannabis use, unspecified, uncomplicated, F17.200 - Nicotine dependence, unspecified, uncomplicated, F25.0 - Schizoaffective disorder, bipolar type, M54.50 - Low back pain, unspecified Lipid Panel 07/22/25 E66.01 - Morbid (severe) obesity due to excess calories, E66.9 - Obesity, unspecified, F12.90 - Cannabis use, unspecified, uncomplicated, F17.200 - Nicotine dependence, unspecified, uncomplicated, F25.0 - Schizoaffe ctive disorder, bipolar type, M54.50 - Low back pain, unspecified Medications: New amoxicillin-pot clavulanate 875-125 mg 1 tab PO BID 14 tabs 0RF 7 days
[2025-07-22 11:00] VITALS: BP 142/84
--- OUTSIDE RECORDS SUMMARY | 2025-07-22 11:46 | XMS_ITS ---
Author Organization [facility] Care Team Providers Care De Ionizer Operator Name Role Phone SAIDGATITO Unavailable Unavailable Allergies and adverse reactions Code CodeSystem Substance Reaction Severity StartDate Concern Status Ativan Unknown 06/05/2019 active Care Team Name Role Address Phone Organization Dates GATITO SAID PCP [address], [address], [facility] (Office): : [facility] 06/06/2019 - 08/14/2019 Mental Status Section Date Assessment Total Score Description 08/14/2019 CAM 0 No delirium ind icated 2019 BIMS 15 cognitively int act CAM 0 No delirium ind icated PHQ-9 00 Problems Problem # Description Date of onset Resolved Date Code CodeSystem Concern Status 1 ACUTE KIDNEY FAILURE, UNSPECIFIED 06/05/[address] active 2 ACUTE RESPIRATORY FAILURE, UNSPECIFIED WHETHER WITH HYPOXIA OR HYPERCAPNIA 06/05/[address] active 3 ACUTE VIRAL HEPATITIS, UNSPECIFIED 06/05/[address] active 4 DIFFICULTY IN WALKING, NOT ELSEWHERE CLASSIFIED 06/05/[address] active 5 NEED FOR ASSISTANCE WITH PERSONAL CARE 06/05/[id number] active 6 NON-PRESSURE CHRONIC ULCER OF SKIN OF OTHER SITES WITH NECROSIS OF BONE 06/05/[address] active 7 OTHER PSYCHOACTIVE SUBSTANCE ABUSE, UNCOMPLICATED 06/05/[address] active 8 PNEUMONIA, UNSPECIFIED ORGANISM 06/05/[address] active 9 RHABDOMYOLYSIS 06/05/[address] active 10 SCHIZOPHRENIA, UNSPECIFIED 06/05/[address] active 11 UNSPECIFIED FOREIGN BODY IN PHARYNX CAUSING ASPHYXIATION, SEQUELA 06/05/[address] active Reason for Referral No Reasons for Referral Entered Social History Social History Observation Description Start Date End Date Code Code System Current Smoking Status Tobacco smoking consumption unknown 959600306 SNOMED CT Sex Assigned At Male 1980 81421-3 [facility] Gender Identity Vital Signs Code Code System Vitals Name Values and Units Timing Information 15220-3 [facility] Pain Level Value=5.0 08/14/2019 97171-2 [facility] Weight Dvzel=015.2 Units=Lbs 04/2019 8310-5 [facility] Body Temperature Value=97.9 Units= F 06/29/2019 9279-1 [facility] Respiratory Rate Value=18.0 Units=/m in 06/25/2019 8462-4 [facility] Blood Pressure-Diastolic Value=73 Un its=mmHg 06/25/2019 8480-6 [facility] Blood Pressure-Systolic Shfct=979 Un its=mmHg 06/25/2019 8867-4 [facility] Heart rate Yumhj=030.0 Units=/min 06/25/2019 81545-1 [facility] O2 % dC Oximetry Value=97.0 Units= % 06/25/2019 8302-2 [facility] Height Value=71.0 Units=Inches 06/16/2019
== END 2025-07-22 11:44 | disposition home or self-care (01) ==
LOC: HO.HMCH 10:53
PROVIDERS: PCP Internal Medicine
DX: J32.9 Chronic sinusitis, unspecified (principal); F25.0 Schizoaffective disorder, bipolar type; E66.01 Morbid (severe) obesity due to excess calories; Z68.42 Body mass index [BMI] 45.0-49.9, adult; F12.90 Cannabis use, unspecified, uncomplicated; M54.50 Low back pain, unspecified; F17.200 Nicotine dependence, unspecified, uncomplicated

== ENCOUNTER → 2025-07-22 10:53 | Outpatient (BNVA) | payer MEDICARE, MEDICAID, SELFPAY | PROVIDERS: PCP Internal Medicine | DX: F25.0 Schizoaffective disorder, bipolar type (principal); F12.90 Cannabis use, unspecified, uncomplicated; E66.01 Morbid (severe) obesity due to excess calories; Z68.42 Body mass index [BMI] 45.0-49.9, adult; M54.50 Low back pain, unspecified; J32.9 Chronic sinusitis, unspecified; Z71.3 Dietary counseling and surveillance | CPT/HCPCS: 96127; 99212 ==